=== PATIENT | female | born 1960 | race Caucasian/White ===

== ENCOUNTER 2024-04-26 20:05 | Observation (INO) | payer BC, OTHER ==
[2024-04-26] MEDS ORDERED: MORPHINE SULFATE 4 MG INJ ONE (21:09)
[2024-04-26] MEDS: MORPHINE SULFATE 4 MG INJ IM ONE (21:14)
[2024-04-26] MEDS ORDERED: Hydromorphone 1 mg/ml Injection ONE (22:14)
[2024-04-26] MEDS ORDERED: Zofran 4 MG/2 ML VIAL ONE (22:14)
--- NOTE | 2024-04-26 22:15 | PCM.NOTE ---
Date and Time: 04/26/242213 Subjective Assessment: plan orif rt prox humerus at 10:00 sunday will see in am npo after mn no blood thinners Objective Data Vital Signs: Vital Signs - 24 hr Temp Pulse Resp BP Pulse Ox 04/26/24 22:05 80 18 163/99 97 04/26/24 21:06 83 20 139/93 98 04/26/24 20:29 96.7 F 87 24 184/97 98 Pain Assessment - Last Documented Pain Intensity 10 Pain Scale Used 0-10 Pain Scale Intake and Output: Intake & Output 04/24/24 04/25/24 04/26/24 04/27/24 11:59 11:59 11:59 11:59 Weight 63.5 kg Radiology Exams: Radiology Procedures Category Date Time Status CHEST 1 VIEW (PORTABLE) Stat Exams 04/26/24 21:53 Ordered HUMERUS Stat Exams 04/26/24 20:42 Taken SHOULDER Stat Exams 04/26/24 20:42 Taken
[2024-04-26] MEDS: Zofran 4 MG/2 ML VIAL IV ONE (22:16)
[2024-04-26] MEDS: Hydromorphone 1 mg/ml Injection IV ONE (22:16)
[2024-04-26 22:25] LABS: Absolute Neutrophil Ct (ANC) 3.83 x10^3/uL (1.56-6.13); BASOPHIL % 0.6 % (0.1-1.2); Basophil (Absolute #) 0.03 x10^3/uL (0.01-0.08); Eosinophil % 2.2 % (0.7-5.8); Eosinophil (Absolute #) 0.11 x10^3/uL (0.04-0.36); Hematocrit 35.2 % (34.1-44.9); Hemoglobin 11.9 g/dL (11.2-15.7); IMMATURE GRAN # 0.02 x10^3u/L (0.001-0.031); IMMATURE GRAN % 0.4 % (0.001-0.429); Lymphocyte (Absolute #) 0.78 x10^3/uL (1.18-3.74); Lymphocytes % 15.3 % (19.3-51.7); Mean Cell Volume 92.1 fL (79.4-94.8); Mean Corpuscular Hemoglobin 31.2 pg (25.6-32.2); Mean Corpuscular Hgb Concent. 33.8 g/dL (32.2-35.5); Mean Platelet Volume 9.6 fL (9.4-12.3); Monocyte (Absolute #) 0.32 x10^3/uL (0.24-0.86); Monocytes % 6.3 % (4.7-12.5); Neutrophil % 75.2 % (34.0-71.1); Platelet Count 224 x10^3/uL (182-369); Red Blood Count 3.82 x10^6/uL (3.93-5.22); Red Cell Distribution Width 13.6 % (11.7-14.4); White Blood Count 5.1 x10^3/uL (3.98-10.04)
[2024-04-26 22:38] LABS: ALBUMIN 4.1 g/dL (3.5-5.0); ANION GAP 15.4 MEQ/L (5-15); BILIRUBIN,TOTAL 0.5 mg/dL (0.2-1.3); Calcium 8.9 mg/dL (8.4-10.2); Creatinine 1 0.91 mg/dL (0.52-1.04); EST GLOMERULAR FILTRATION RATE 70.5 ML/MIN; Potassium 4.1 mmol/L (3.5-5.1); Total Protein 6.9 g/dL (6.3-8.2)
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
[2024-04-26] MEDS ORDERED: TYLENOL 325 MG PO PRN (23:42)
[2024-04-27] MEDS: Sodium Chloride 0.9% 1000 ML 1,000 ML IV SCH ×2 (00:43→15:02)
[2024-04-27] MEDS: Hydromorphone 1 mg/ml Injection IV PRN (01:06)
[2024-04-27 06:28] LABS: Absolute Neutrophil Ct (ANC) 2.85 x10^3/uL (1.56-6.13); BASOPHIL % 0.7 % (0.1-1.2); Basophil (Absolute #) 0.03 x10^3/uL (0.01-0.08); Eosinophil % 2.2 % (0.7-5.8); Eosinophil (Absolute #) 0.09 x10^3/uL (0.04-0.36); IMMATURE GRAN # 0.02 x10^3u/L (0.001-0.031); IMMATURE GRAN % 0.5 % (0.001-0.429); Lymphocytes % 17.4 % (19.3-51.7); Mean Cell Volume 93.5 fL (79.4-94.8); Mean Corpuscular Hemoglobin 31.2 pg (25.6-32.2); Mean Corpuscular Hgb Concent. 33.3 g/dL (32.2-35.5); Mean Platelet Volume 10.1 fL (9.4-12.3); Monocyte (Absolute #) 0.34 x10^3/uL (0.24-0.86); Monocytes % 8.4 % (4.7-12.5); Neutrophil % 70.8 % (34.0-71.1); Platelet Count 197 x10^3/uL (182-369); Red Blood Count 3.53 x10^6/uL (3.93-5.22); Red Cell Distribution Width 13.7 % (11.7-14.4)
[2024-04-27 06:40] LABS: ALBUMIN 3.7 g/dL (3.5-5.0); ANION GAP 15.9 MEQ/L (5-15); BILIRUBIN,TOTAL 0.5 mg/dL (0.2-1.3); Calcium 8.7 mg/dL (8.4-10.2); Creatinine 1 0.75 mg/dL (0.52-1.04); EST GLOMERULAR FILTRATION RATE 88.9 ML/MIN; Total Protein 6.3 g/dL (6.3-8.2)
--- NOTE | 2024-04-27 07:22 | XRAY ---
Indication: Pain following fall. Deformity. Comparison: None 3 view right shoulder demonstrates comminuted fracture proximal shaft humerus with moderate displacement and soft tissue swelling. Incidental osteopenia and mild AC degenerative changes. No other bony, articular, or soft tissue abnormalities.
--- NOTE | 2024-04-27 07:22 | XRAY ---
Indication: Pain following fall. Deformity. Comparison: None 2 view right humerus demonstrates comminuted fracture proximal shaft with moderate displacement, minimal angulation, and soft tissue swelling. Incidental osteopenia. No other bony, articular, or soft tissue abnormalities.
--- NOTE | 2024-04-27 07:24 | XRAY ---
Indication: Status post fall. Comparison: None Portable chest demonstrates large hiatal hernia with left lung base intrathoracic stomach. Remaining heart and lungs unremarkable. Bony thorax demonstrates old left rib fractures and acute proximal right humerus fracture reported separately.
[2024-04-27] MEDS ORDERED: MORPHINE SULFATE 2 MG INJ IV PRN ×2 (07:40→13:35)
[2024-04-27] MEDS: TRANDATE 20 MG/4 ML SYRINGE IV PRN (08:31)
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
[2024-04-27] MEDS: Protonix 40MG Tablet PO SCH (09:35)
[2024-04-27] MEDS: Toprol Xl 50 MG PO SCH (09:35)
[2024-04-27] MEDS: CEFAZOLIN 2 GM/100 ML NaCl 2 GM/100 ML IVPB IV SCH (09:35)
[2024-04-27] MEDS ORDERED: MARCAINE 0.25% PF/ EPI 1:200,000 ONE (09:39)
[2024-04-27] MEDS ORDERED: KEFZOL 1 GM ONE (09:39)
[2024-04-27] MEDS ORDERED: Lactated Ringers 1,000 ML IV ONE (09:39)
[2024-04-27] MEDS: TRANEXAMIC 1,000 MG/100ML-NACL 1,000 MG/100 ML PIGGYBACK IV SCH (09:40)
[2024-04-27] MEDS ORDERED: TORAdol 30 mg Injection ONE (10:13)
[2024-04-27] MEDS ORDERED: Marcaine 0.5%/Epinephrine 10 ML ONE (10:13)
[2024-04-27] MEDS ORDERED: Decadron 4 MG INJ ONE (10:13)
[2024-04-27] MEDS ORDERED: DIPRIVAN 200 MG/20 ML IV ONE (10:13)
[2024-04-27] MEDS ORDERED: Zofran 4 MG/2 ML VIAL ONE ×2 (10:13→12:34)
[2024-04-27] MEDS ORDERED: Amidate 20 MG/10 ML IV ONE (10:13)
[2024-04-27] MEDS ORDERED: Xylocaine-Mpf 2% 5 Ml Vial ONE (10:13)
[2024-04-27] MEDS ORDERED: SUBLIMAZE 100 MCG/2 ML ONE (10:15)
[2024-04-27] MEDS ORDERED: EXPAREL 133 MG/10 ML VIAL IJ ONE (10:16)
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
[2024-04-27] MEDS ORDERED: APRESOLINE 20 MG/ML INJ ONE (12:17)
[2024-04-27] MEDS ORDERED: TYLENOL EXTRA STRENGTH 500 MG PO PRN (13:37)
[2024-04-27] MEDS ORDERED: Zofran 4 MG/2 ML VIAL IV PRN (13:39)
[2024-04-27] MEDS ORDERED: Narcan 0.4 MG/ML IV PRN (13:40)
--- NOTE | 2024-04-27 19:31 | XRAY ---
Indication: Right shoulder fracture. Intraoperative fluoroscopy provided for 47 seconds. 9 digital spot images submitted for interpretation ultimately demonstrates lateral fixation plate and multiple screws fixating proximal humeral shaft fracture with improved apposition/alignment. Correlate with intraoperative findings/report.
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
[2024-04-28 05:32] LABS: Hematocrit 30.3 % (34.1-44.9); Hemoglobin 9.9 g/dL (11.2-15.7); Mean Cell Volume 94.4 fL (79.4-94.8); Mean Corpuscular Hemoglobin 30.8 pg (25.6-32.2); Mean Corpuscular Hgb Concent. 32.7 g/dL (32.2-35.5); Mean Platelet Volume 10.8 fL (9.4-12.3); Platelet Count 159 x10^3/uL (182-369); Red Blood Count 3.21 x10^6/uL (3.93-5.22); Red Cell Distribution Width 14.1 % (11.7-14.4); White Blood Count 4.3 x10^3/uL (3.98-10.04)
[2024-04-28 05:46] LABS: Calcium 8.6 mg/dL (8.4-10.2); Creatinine 1 0.79 mg/dL (0.52-1.04); EST GLOMERULAR FILTRATION RATE 83.5 ML/MIN; Potassium 4.3 mmol/L (3.5-5.1)
--- NOTE | 2024-04-28 08:20 | XRAY ---
47 seconds of fluoroscopy was used in surgery for a right shoulder fracture.
[2024-04-28] MEDS: PERCOCET TABLET 5/325MG PO PRN (08:31)
[2024-04-28 11:35] VITALS: PULSE 80; RESP 18; TEMP 98; O2SAT 93
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
[2024-04-28 12:34] VITALS: BP 145/60
--- NOTE | 2024-04-29 16:16 | OP ---
SURGERY DATE/TIME: 04/27/2024 [id number] DIAGNOSIS: Right proximal humeral shaft fracture. PROCEDURE: Open reduction and internal fixation right proximal humeral shaft. SURGEON: Fernando Camara MD ANESTHESIA: General plus block. FINDINGS: Comminuted displaced proximal shaft fracture. INDICATIONS: The patient is a 63-year-old white female who fell last night sustaining the above-mentioned displaced fracture. As indicated, reduced and stabilized this to prevent malunion and nonunion. IMPLANTS: Mahogany proximal humeral plate titanium with 5 proximal locking screws, distally there were 2 non-locking and 2 locking screws which were all titanium. There was also a lag screw which was 3.5. DESCRIPTION OF PROCEDURE AND FINDINGS: Patient was seen in the holding room. We identified the right shoulder as correct. This was initialed by me. She had 2 g of Kefzol and 1000 mg of tranexamic acid. She was taken to the OR where she had general anesthesia and a block. She was positioned supine in a standard bed with the head reversed. She had a small bump in her shoulder blade. Had preoperative views showing the visualization, the C-arm coming in from the head of the bed. She had a sterile prep and draping of the right upper extremity. Time-out was performed by me. The deltopectoral incision was used with extension distally to anterior shoulder. The incision was pre-injected with 10 mL of 0.25% Marcaine with epinephrine. Incision was made about 15 cm in length. The deltopectoral interval was bluntly dissected. A retractor was placed around the humeral head. A #2 MaxBraid suture was placed to the supraspinatus insertion. The biceps tendon was damaged from the combination of the fracture. Therefore, it was cut and then tenodesed to the proximal anterior soft tissue of the shoulder. The fracture was reduced and clamped and then a 3.5 mm lag screw was placed in a lag technique from anterior to posterior. The titanium plate was chosen with the plate that would sit more distal. This had the sutures placed at the top suture holes and then placed with a K-wire through the centering hole. Then, 2 locking screws were placed into the head and the plate was lagged down to the shaft to the slotted hole distally. The additional locking screws were placed proximally, placing a total of 5 into the head. These were all about 5 mm short of subcortical bone. Distally, 1 nonlocking and 2 locking screws were placed. A final C-arm view showed good reduction and alignment. The locking screws were unlocked with a torque wrench. The suture was tied to the top of the plate. The wound was thoroughly irrigated and the subcutaneous tissue was closed with 2-0 Vicryl interrupted. The skin was stable. Sterile dressings were applied, and the patient was placed in a sling. ESTIMATED BLOOD LOSS: 75 mL. SPECIMENS: None. DRAINS: None. COMPLICATIONS: None. PLAN: For the patient to do pendulum exercises, only passively reach over her head. She will be on 2-pound weight limit. She may be discharged home today if comfortable. She may remove the dressing in 5 days and shower and have the lucas removed in 8 to 10 days in the office. She should have a repeat followup with me in about 3 weeks and have x-ray then.
== END 2024-04-28 14:10 | disposition home or self-care (01) ==
LOC: ED 20:05 → MED SURG 23:30
PROVIDERS: ADMIT Internal Medicine Nephrology; ATTEND Internal Medicine Nephrology
DX: S42.331A Displaced oblique fracture of shaft of humerus, right arm, initial encounter for closed fracture (principal); W19.XXXA Unspecified fall, initial encounter; I48.91 Unspecified atrial fibrillation; Z77.120 Contact with and (suspected) exposure to mold (toxic); I10 Essential (primary) hypertension; E78.5 Hyperlipidemia, unspecified; K21.9 Gastro-esophageal reflux disease without esophagitis; Z79.899 Other long term (current) drug therapy
CPT/HCPCS: 24515; 36000; 36415; 71045; 73030; 73060; 76000; 76937; 80048; 80053; 85025; 85027; 93005; 93268; 94762; 96372; 96374; 96375; 99285; C1713; C1776; J0360; J0690; J1100; J1170; J1885; J2270; J2405; J2704; J3010; Q3014; A9270-GY; G0378